=== PATIENT | female | born 1960 | race Caucasian/White ===

== ENCOUNTER → 2018-11-14 | Emergency (ER) | payer MEDICARE ==
[~2018-11-14] VITALS: Ht 162.6 cm; Wt 98.4 kg
[~2018-11-14] MED LIST: AMBIEN PAK10 MG; CARAFATE1 G1; FENTANYL CITRATE/PF 100MCG/2 ML INJ IV NR; HYDROMORPHONE 2MG/ML 2 MG/ML ML IV NR; MOBIC7.5 M1; ONDANSETRON HCL INJ 2MG/ML 2ML 2 MG/ML VIAL IV NR; PRISTIQ50 MG; ULTRAM 50MG50 MG PO; Z.0.CARAFATE1 GM; Z.0.FLOVENT DISKUS50; Z.0.NEXIUM40 MG; Z.0.VENTOLIN HFA18 G; Z.0.VIIBRYD40 MG; [UNRECOGNIZED DRUG - CODE]; [UNRECOGNIZED DRUG - OTHER]
--- OUTSIDE RECORDS SUMMARY | 2018-11-14 18:22 | XMS REPORT | Clinical Summary ---
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 tablet 03/13/2018 traMADol (ULTRAM) 50 mg Take 1-2 tabs 15 tablet 0 tablet q8hr prn pain 8 10/12/2018 metoclopramide (REGLAN) Take 1 tablet 30 tablet 0 10 MG tablet (10 mg total) 9 by mouth 4 (four) times a day as needed (Headache) for up to 14 days. Active Problems Not on file Encounters Care Team Description Date Type Specialty Quang Moser MD Acute nonintractable headache, unspecified headache type (Primary Dx) 09/28/2018 Emergency Emergency Medicine Gagan Hardin DO Contusion of right knee, initial encounter (Primary Dx); Fall, initial encounter; Abrasion 03/07/2018 Emergency Emergency Medicine after 11/13/2017 Immunizations Name Dates Previously Given Next Due Tdap 03/07/2018 Social History Date Tobacco Use Types Packs/Day Years Used Never Smoker Smokeless Tobacco: Never Used Alcohol Use Drinks/Week oz/Week Comments No Alcohol Habits Answer Date Recorded How often do you have a drink containing alcohol? Never 09/28/2018 How many drinks containing alcohol do you have on Not asked a typical day when you are drinking? How often do you have six or more drinks on one Not asked occasion? Sex Assigned at Date Recorded Not on file Industry Job Start Date Occupation Not on file Not on file Not on file Travel End Travel History Travel Start No recent travel history available. Last Filed Vital Signs Time Taken Vital Sign Reading 09/28/2018 11:00 PM [employer]ICE SUPERINTENDENT Blood Pressure 111/65 09/28/2018 11:00 PM [employer]ICE SUPERINTENDENT Pulse 85 09/28/2018 11:00 PM [employer]ICE SUPERINTENDENT Temperature 36.7 C (98.1 F) 09/28/2018 11:00 PM POLICE SUPERINTENDENT Respiratory Rate 17 09/28/2018 11:00 PM POLICE SUPERINTENDENT Oxygen Saturation 96% - Inhaled Oxygen - Concentration 09/28/2018 9:36 PM POLICE SUPERINTENDENT Weight 98.4 kg (217 lb) 09/28/2018 9:36 PM POLICE SUPERINTENDENT Height 162.6 cm (5' 4") 09/28/2018 9:36 PM POLICE SUPERINTENDENT Body Mass Index 37.25 Plan of Treatment Health Maintenance Due Date Last Done Comments CERVICAL CANCER SCREENING 1979 BREAST CANCER SCREENING 2008 COLON CANCER SCREENING 2008 SHINGLES VACCINES (#1) 2008 INFLUENZA VACCINE 04/07/2018 Procedures Comments Procedure Name Priority Date/Time Associated Diagnosis CT HEAD WO CONTRAST STAT 09/28/2018 10:22 PM POLICE SUPERINTENDENT ESTIMATED GFR Routine 09/28/2018 9:54 PM POLICE SUPERINTENDENT COMPREHENSIVE METABOLIC Routine 09/28/2018 PANEL 9:54 PM POLICE SUPERINTENDENT PROTHROMBIN TIME WITH INR Routine 09/28/2018 9:54 PM POLICE SUPERINTENDENT HC COMPLETE BLD COUNT Routine 09/28/2018 W/AUTO DIFF 9:54 PM POLICE SUPERINTENDENT ECG 12-LEAD Routine 09/28/2018 9:52 PM POLICE SUPERINTENDENT ECG ED PRELIMINARY Routine 09/28/2018 INTERPRETATION 9:38 PM POLICE SUPERINTENDENT XR KNEE 4+ VW RIGHT STAT 03/07/2018 7:03 PM CDT XR HIP 2-3 VIEWS RIGHT STAT 03/07/2018 7:03 PM CDT XR ANKLE 3+ VW RIGHT STAT 03/07/2018 7:03 PM CDT after 11/13/2017 Results * CT Head Wo Contrast (09/28/2018 10:22 PM POLICE SUPERINTENDENT) Narrative Performed At EXAM: CT HEAD WO CONTRAST [facility] CLINICAL HISTORY: Headache TECHNIQUE: Noncontrast enhanced images of the brain were obtained from the skull base to the vertex. Both soft tissue and bone reconstruction algorithms were performed. CT scans are performed using radiation dose reduction techniques (iterative reconstruction and/or automated exposure control). Technical factors are evaluated and adjusted to ensure appropriate moderation of exposure. Automated dose management technology is applied to adjust radiation exposure while achieving a diagnostic quality image. COMPARISON:CT, 02/22/2016. FINDINGS: The farley-white matter differentiation is preserved and without evidence of acute territorial infarction. There is no evidence for acute intracranial hemorrhage, mass, mass effect, hydrocephalus, or extra-axial fluid collection. Orbits are unremarkable.Paranasal sinuses are clear.Mastoid air cells are normally pneumatized.Osseous structures are intact. IMPRESSION: No CT evidence for acute intracranial abnormality. [id number] Procedure Note Hm Interface, Radiology Results Incoming - 09/28/2018 10:30 PM POLICE SUPERINTENDENT EXAM: CT HEAD WO CONTRAST CLINICAL HISTORY: Headache TECHNIQUE: Noncontrast enhanced images of the brain were obtained from the skull base to the vertex. Both soft tissue and bone reconstruction algorithms were performed. CT scans are performed using radiation dose reduction techniques (iterative reconstruction and/or automated exposure control). Technical factors are evaluated and adjusted to ensure appropriate moderation of exposure. Automated dose management technology is applied to adjust radiation exposure while achieving a diagnostic quality image. COMPARISON: CT, 02/22/2016. FINDINGS: The farley-white matter differentiation is preserved and without evidence of acute territorial infarction. There is no evidence for acute intracranial hemorrhage, mass, mass effect, hydrocephalus, or extra-axial fluid collection. Orbits are unremarkable. Paranasal sinuses are clear. Mastoid air cells are normally pneumatized. Osseous structures are intact. IMPRESSION: No CT evidence for acute intracranial abnormality. [facility]-[id number] Performing Organization Address City/State/Zipcode Phone Number [facility] [address] [place] [address] * Estimated GFR (09/28/2018 9:54 PM POLICE SUPERINTENDENT) Estimated GFR 54 (A) mL/min/1.73 m2 [employer] Comment: [facility] CatergoryUnitsInte rpretation G1 >=90 Normal or high G2 60-89Mildly decreased [id number] Mildly to moderately decreased [id number] Moderately to severely decreased G4 15-29Severely decreased G5 <15Kidney failure The eGFR was calculated using the Chronic Kidney Disease Epidemiology Collaboration (CKD-EPI) equation. Interpretation is based on recommendations of the National Kidney Foundation-Kidney Disease Outcomes Quality Initiative (NKF-KDOQI) published in 2014. Specimen Plasma specimen Performing Organization Address [facility] Phone Number [address] [place] [address] PATHOLOGY AND GENOMIC MEDICINE [address] * Prothrombin time with INR (09/28/2018 9:54 PM POLICE SUPERINTENDENT) Prothrombin time 12.9 11.5 - 14.5 sec [facility] INR 1.0 [facility] Comment: [facility] The International Normalized Ratio (INR) is a therapeutic monitoring tool for patients who are stable on oral anticoagulant therapy. An INR of 2.0-3.0 is suggested for deep vein thrombosis/pulmonary embolism. Specimen Blood Performing Organization Address [facility] Phone Number [address] [place] [address] PATHOLOGY AND GENOMIC MEDICINE [address] * CBC with platelet and differential (09/28/2018 9:54 PM POLICE SUPERINTENDENT) WBC 9.68 4.50 - 11.00 k/uL [facility] RBC 5.44 4.20 - 5.50 m/uL [facility] HGB 15.4 12.0 - 16.0 g/dL [facility] HCT 45.7 37.0 - 47.0 % [facility] MCV 84.0 82.0 - 100.0 fL [facility] MCH 28.3 27.0 - 34.0 pg [facility] MCHC 33.7 31.0 - 37.0 g/dL [facility] RDW - SD 38.5 37.0 - 55.0 fL [facility] MPV 10.6 8.8 - 13.2 fL [facility] Platelet count 265 150 - 400 k/uL [facility] Nucleated RBC 0.00 /100 WBC [facility] Neutrophils 58.8 39.0 - 69.0 % [facility] Lymphocytes 27.6 25.0 - 45.0 % [facility] Monocytes 9.8 0.0 - 10.0 % [facility] Eosinophils 2.8 0.0 - 5.0 % [facility] Basophils 0.6 0.0 - 1.0 % [facility] Specimen Blood Performing Organization Address City/State/Zipcode Phone Number [facility] [place] [id number] [place] [address] [place] [address] PATHOLOGY AND GENOMIC MEDICINE [address] * Comprehensive metabolic panel (09/28/2018 9:54 PM POLICE SUPERINTENDENT) Sodium 143 135 - 148 mEq/L [facility] Potassium 4.7 3.5 - 5.0 mEq/L [facility] Chloride 108 98 - 112 mEq/L [facility] CO2 20 (L) 24 - 31 mEq/L [facility] Anion gap 15@ANIO 7 - 15 mEq/L [facility] BUN 27 (H) 8 - 23 mg/dL [facility] Creatinine 1.10 (H) 0.50 - 0.90 mg/dL [facility] Glucose 98 65 - 99 mg/dL [facility] Calcium 10.1 8.8 - 10.2 mg/dL [facility] Protein 8.3 6.3 - 8.3 g/dL [facility] Comment: [facility] [place] 4.6-7.0 g/dL 1 week 4.4-7.6 g/dL 7 months-1year 5.1-7.3 g/dL 1-2 years5.6-7 .5 g/dL >3 years6.0-8 .0 g/dL 18-150 6.3-8.3 g/dL Albumin 4.3 3.5 - 5.0 g/dL [facility] A/G ratio 1.1 0.7 - 3.8 [facility] Alkaline phosphatase 69 35 - 104 U/L [facility] AST 24 10 - 35 U/L [facility] ALT 20 5 - 50 U/L [facility] Total bilirubin 0.7 0.0 - 1.2 mg/dL [facility] Specimen Plasma specimen Performing Organization Address [facility] Phone Number [facility] [place] [id number] [place] [address] [place] [address] PATHOLOGY AND GENOMIC MEDICINE [facility] [address] [place] [address] [place] [address] [facility] * ECG 12 lead (09/28/2018 9:52 PM POLICE SUPERINTENDENT) Ventricular rate 79 [facility] Atrial rate 79 [facility] AR interval 138 [facility] QRSD interval 68 [facility] QT interval 346 [facility] QTC interval 396 [facility] P axis 1 27 [facility] QRS axis 1 27 [facility] T wave axis 42 [facility] EKG impression Normal sinus rhythm-Low [facility] voltage QRS-Borderline ECG-In automated comparison with ECG of 22-FEB-2016 20:04,-No significant change was found- Narrative Performed At Performing Organization Address [facility] Phone Number [facility] [address] [place] [address] * ECG ED Preliminary Interpretation - Not an Order (09/28/2018 9:38 PM POLICE SUPERINTENDENT) Narrative Performed At Quang Moser MD 09/29/20183:50 AM ECG ED Preliminary Interpretation - Not an Order Performed by: Quang Moser MD Authorized by: Quang Moser MD ECG reviewed by ED Physician in the absence of a utility system repairer: yes Interpretation: Interpretation: normal Rate: ECG rate:79 ECG rate assessment: normal Rhythm: Rhythm: sinus rhythm Ectopy: Ectopy: none QRS: QRS axis:Normal Conduction: Conduction: normal ST segments: ST segments:Normal T waves: T waves: normal * XR Knee 4+ Vw Right (03/07/2018 7:03 PM CDT) Narrative Performed At EXAMINATION:XR KNEE 4VW RIGHT [facility] CLINICAL HISTORY:fall COMPARISON:None. TECHNIQUE: 4views of the right knee obtained. IMPRESSION: Bones are demineralized. No acute fracture, dislocation or joint effusion identified. [facility]-[id number] Procedure Note Interface, Radiology Results Incoming - 03/07/2018 7:09 PM CDT EXAMINATION: XR KNEE 4 VW RIGHT CLINICAL HISTORY: fall COMPARISON: None. TECHNIQUE: 4 views of the right knee obtained. IMPRESSION: Bones are demineralized. No acute fracture, dislocation or joint effusion identified. [facility]-[id number] Performing Organization Address [facility] Phone Number [facility] [address] [place] [address] * XR Hip 2-3 View Right (03/07/2018 7:03 PM CDT) Narrative Performed At EXAMINATION:XR HIP 2-3 VIEWS RIGHT [facility] CLINICAL HISTORY:fall TECHNIQUE:3views of right hipobtained. COMPARISON:None. IMPRESSION: Left hip arthroplasty. Bones are demineralized. No acute fracture or dislocation identified. Phleboliths in the pelvis. Surgical clips projecting over the pelvis and lower abdomen partially visualized. [facility]-[id number] Procedure Note Interface, Radiology Results Incoming - 03/07/2018 7:10 PM CDT EXAMINATION: XR HIP 2-3 VIEWS RIGHT CLINICAL HISTORY: fall TECHNIQUE: 3 views of right hip obtained. COMPARISON: None. IMPRESSION: Left hip arthroplasty. Bones are demineralized. No acute fracture or dislocation identified. Phleboliths in the pelvis. Surgical clips projecting over the pelvis and lower abdomen partially visualized. [facility]-[id number] Performing Organization Address [facility] Phone Number [facility] [address] [place] [address] * XR Ankle 3+ Vw Right (03/07/2018 7:03 PM CDT) Narrative Performed At EXAMINATION:XR ANKLE 3VW RIGHT [facility] CLINICAL HISTORY:fall COMPARISON:None. TECHNIQUE: 3views of right ankle obtained. IMPRESSION: Ankle mortise intact. No acute fracture or dislocation identified. Os peroneum, anatomic variant. Calcaneal spurring. Mild edema in Kager's fat pad may indicate Achilles peritendinitis. Mild to moderate degenerative change in the talonavicular and naviculocuneiform joints. [facility]-[id number] Procedure Note Interface, Radiology Results Incoming - 03/07/2018 7:08 PM CDT EXAMINATION: XR ANKLE 3 VW RIGHT CLINICAL HISTORY: fall COMPARISON: None. TECHNIQUE: 3 views of right ankle obtained. IMPRESSION: Ankle mortise intact. No acute fracture or dislocation identified. Os peroneum, anatomic variant. Calcaneal spurring. Mild edema in Kager's fat pad may indicate Achilles peritendinitis. Mild to moderate degenerative change in the talonavicular and naviculocuneiform joints. [facility]-[id number] Performing Organization Address City/State/Zipcode Phone Number [facility] [address] [place] [address] after 11/13/2017 Insurance Payer Benefit Subscriber ID Type Phone Address Plan / Group MEDICARE MEDICARE xxxxxxxxxx Medicare [place] B MEDICAID MEDICAID xxxxxxxxx Medicaid ([place]) [place] [address] Advance Directives Patient has advance care planning documents on file. For more information, vladislav roblero contact: Vinnie Kan [address] [place] [address]
--- OUTSIDE RECORDS SUMMARY | 2018-11-14 18:23 | XMS REPORT ---
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 Allergies, Adverse Reactions, Alerts Allergy Name Allergy Type Status Severity Reaction(s) Onset Date Inactive Date Treating Clinician Comments codeine DA Active PA 2018-09-25 00:00:00 codeine DA Active PA 2018-05-17 00:00:00 hydrocodone DA Active U 2018-05-17 00:00:00 pollen extracts DA Active PA 2018-05-17 00:00:00 latex DA Active U 2018-05-17 00:00:00 grass pollen DA Active PA 2018-05-17 00:00:00 codeine DA Active PA 2016-11-19 00:00:00 hydrocodone DA Active U 2016-11-19 00:00:00 pollen extracts DA Active PA 2016-11-19 00:00:00 latex DA Active U 2016-11-19 00:00:00 grass pollen DA Active PA 2016-11-19 00:00:00 Medications This patient has no known medications. Results Test Description Test Time Test Comments Text Results Atomic Results Result Comments URINALYSIS COMPLETE 2018-09-26 01:10:00 UA COLOR (test code=COLU) YELLOW YEL/STRAW UA APPEARANCE (test code=APPU) CLEAR CLEAR UA GLUCOSE DIPSTICK (test code=DGLUU) NEGATIVE NEGATIVE UA BILIRUBIN DIPSTICK (test code=BILU) NEGATIVE NEGATIVE UA KETONE DIPSTICK (test code=KETU) NEGATIVE NEGATIVE UA SPECIFIC GRAVITY (test code=SGU) 1.018 1.005-1.030 UA BLOOD DIPSTICK (test code=MG) 2+ NEGATIVE UA PH DIPSTICK (test code=MONA) 5.0 5.0-7.0 UA PROTEIN DIPSTICK (test code=PROU) NEGATIVE NEGATIVE UA UROBILINIOGEN DIPSTICK (test code=URO) 0.2 mg/dL 0.2-1.0 UA NITRITE DIPSTICK (test code=BRIDGET) NEGATIVE NEGATIVE UA LEUKOCYTE ESTERASE DIPSTICK (test code=LEUU) 1+ NEGATIVE UA WBC (test code=WBCU) 21-50 WBC/HPF 0-3 UA RBC (test code=RBCU) 4-10 RBC/HPF 0-3 UA BACTERIA (test code=BACU) NONE SEEN /HPF NONE SEEN UA SQUAMOUS CELLS (test code=SQU) 6-10 /HPF NONE SEEN UA HYALINE CAST (test code=HYALU) 3-5 /LPF NONE SEEN UA MUCUS (test code=MUCU) TRACE /LPF NONE SEEN URINALYSIS [id number] 01:10:00* Test Item Value Reference Range Comments UA COLOR (test code=COLU) YELLOW YEL/STRAW UA APPEARANCE (test code=APPU) CLEAR CLEAR UA GLUCOSE DIPSTICK (test code=DGLUU) NEGATIVE NEGATIVE UA BILIRUBIN DIPSTICK (test code=BILU) NEGATIVE NEGATIVE UA KETONE DIPSTICK (test code=KETU) NEGATIVE NEGATIVE UA SPECIFIC GRAVITY (test code=SGU) 1.018 1.005-1.030 UA BLOOD DIPSTICK (test code=MG) 2+ NEGATIVE UA PH DIPSTICK (test code=MONA) 5.0 5.0-7.0 UA PROTEIN DIPSTICK (test code=PROU) NEGATIVE NEGATIVE UA UROBILINIOGEN DIPSTICK (test code=URO) 0.2 mg/dL 0.2-1.0 UA NITRITE DIPSTICK (test code=BRIDGET) NEGATIVE NEGATIVE UA LEUKOCYTE ESTERASE DIPSTICK (test code=LEUU) 1+ NEGATIVE UA WBC (test code=WBCU) 21-50 WBC/HPF 0-3 UA RBC (test code=RBCU) 4-10 RBC/HPF 0-3 UA BACTERIA (test code=BACU) NONE SEEN /HPF NONE SEEN UA SQUAMOUS CELLS (test code=SQU) 6-10 /HPF NONE SEEN UA HYALINE CAST (test code=HYALU) 3-5 /LPF NONE SEEN UA MUCUS (test code=MUCU) TRACE /LPF NONE SEEN COMPREHENSIVE METABOLIC [id number] 01:00:00* Test Item Value Reference Range Comments SODIUM (test code=NA) 142 mEq/L 134-147 POTASSIUM (test code=K) 4.2 mEq/L 3.4-5.0 CHLORIDE (test code=CL) 108 mEq/L 100-108 CARBON DIOXIDE (test code=CO2) 25 mEq/L 21-33 ANION GAP (test code=GAP) 13 0-20 GLUCOSE (test code=GLU) 95 mg/dL 70-110 BLOOD UREA NITROGEN (test code=BUN) 24 mg/dL 7-18 GLOMERULAR FILTRATION RATE (test code=GFR) 45.8 80-90 Units of measure=ml/min/1.73 m2 CREATININE (test code=CREAT) 1.2 mg/dL 0.6-1.3 TOTAL PROTEIN (test code=PROT) 7.8 g/dL 6.4-8.2 ALBUMIN (test code=ALB) 3.60 g/dL 3.4-5.0 CALCIUM (test code=CA) 8.8 mg/dL 8.0-10.5 BILIRUBIN TOTAL (test code=BILT) 0.60 mg/dL 0.0-1.0 SGOT/AST (test code=AST) 18 IUnit/L 15-37 SGPT/ALT (test code=ALT) 25 IUnit/L 15-65 ALKALINE PHOSPHATASE TOTAL (test code=ALKP) 82 IUnit/L 20-125 CREATINE KINASE (CK)2018-09-26 01:00:00* Test Item Value Reference Range Comments CREATINE KINASE (CK) (test code=CK) 56 35-232 Result is in INTERNATIONAL UNITS/LITER [id number] 01:00:00* Test Item Value Reference Range Comments MAGNESIUM (test code=MAG) 2.30 mg/dL 1.8-2.4 COMPREHENSIVE METABOLIC [id number] 00:58:00* Test Item Value Reference Range Comments SODIUM (test code=NA) 142 mEq/L 134-147 POTASSIUM (test code=K) 4.2 mEq/L 3.4-5.0 CHLORIDE (test code=CL) 108 mEq/L 100-108 CARBON DIOXIDE (test code=CO2) 25 mEq/L 21-33 ANION GAP (test code=GAP) 13 0-20 GLUCOSE (test code=GLU) 95 mg/dL 70-110 BLOOD UREA NITROGEN (test code=BUN) 24 mg/dL 7-18 GLOMERULAR FILTRATION RATE (test code=GFR) 45.8 80-90 Units of measure=ml/min/1.73 m2 CREATININE (test code=CREAT) 1.2 mg/dL 0.6-1.3 TOTAL PROTEIN (test code=PROT) g/dL 6.4-8.2 ALBUMIN (test code=ALB) 3.60 g/dL 3.4-5.0 CALCIUM (test code=CA) 8.8 mg/dL 8.0-10.5 BILIRUBIN TOTAL (test code=BILT) mg/dL 0.0-1.0 SGOT/AST (test code=AST) 18 IUnit/L 15-37 SGPT/ALT (test code=ALT) 25 IUnit/L 15-65 ALKALINE PHOSPHATASE TOTAL (test code=ALKP) IUnit/L 20-125 CREATINE KINASE (CK)2018-09-26 00:58:00* Test Item Value Reference Range Comments CREATINE KINASE (CK) (test code=CK) 35-232 [id number] 00:58:00* Test Item Value Reference Range Comments MAGNESIUM (test code=MAG) 2.30 mg/dL 1.8-2.4 CBC W/AUTO [id number] 00:53:00* Test Item Value Reference Range Comments WHITE BLOOD CELL (test code=WBC) 6.61 x10 3/uL 4.5-11.0 RED BLOOD CELL (test code=RBC) 5.22 x10 6/uL 3.54-5.02 HEMOGLOBIN (test code=HGB) 14.8 g/dL 11.0-15.0 HEMATOCRIT (test code=HCT) 45.4 % 33.0-45.0 MEAN CELL VOLUME (test code=MCV) 87.0 fL 81.0-99.0 MEAN CELL HGB (test code=MCH) 28.4 pg 27.0-33.0 MEAN CELL HGB CONCETRATION (test code=MCHC) 32.6 g/dL 33.0-37.0 RED CELL DISTRIBUTION WIDTH CV (test code=RDW) 12.6 % 11.5-14.5 RED CELL DISTRIBUTION WIDTH SD (test code=RDW-SD) 39.8 fL 37.0-54.0 PLATELET COUNT (test code=PLT) 209 x10 3/uL 150-400 MEAN PLATELET VOLUME (test code=MPV) 10.9 fL 7.0-9.0 NEUTROPHIL % (test code=NT%) 51.1 % 56.0-77.0 IMMATURE GRANULOCYTE % (test code=IG%) 0.5 % 0.0-2.0 LYMPHOCYTE % (test code=LY%) 30.7 % 14.0-32.0 MONOCYTE % (test code=MO%) 12.0 % 4.8-9.0 EOSINOPHIL % (test code=EO%) 5.1 % 0.3-3.7 BASOPHIL % (test code=BA%) 0.6 % 0.0-2.0 NUCLEATED RBC % (test code=NRBC%) 0.0 % 0-0 NEUTROPHIL # (test code=NT#) 3.38 x10 3/uL 2.0-7.6 IMMATURE GRANULOCYTE # (test code=IG#) 0.03 x10 3/uL 0.00-0.03 LYMPHOCYTE # (test code=LY#) 2.03 x10 3/uL 1.0-3.8 MONOCYTE # (test code=MO#) 0.79 x10 3/uL 0.1-0.8 EOSINOPHIL # (test code=EO#) 0.34 x10 3/uL 0.0-0.2 BASOPHIL # (test code=BA#) 0.04 x10 3/uL 0.0-0.2 NUCLEATED RBC # (test code=NRBC#) 0.00 x10 3/uL 0.0-0.1 MANUAL DIFF REQUIRED (test code=MDIFF) NO
--- NOTE | 2018-11-14 20:23 | Diagnostic Imaging Report ---
EXAMINATION: RIBS UNILAT W/CXR INDICATION: Right lateral rib pain s/p fall. Focal tenderness with palp COMPARISON: 02/25/2012 FINDINGS: AP view TUBES and LINES: None. LUNGS: Lungs are well inflated. Lungs are clear. There is no evidence of pneumonia or pulmonary edema. PLEURA: No pleural effusion or pneumothorax. HEART AND MEDIASTINUM: The cardiomediastinal silhouette is unremarkable. BONES AND SOFT TISSUES: No acute osseous lesion. No acute displaced rib fractures. Stable widening of the right AC joint. Soft tissues are unremarkable. UPPER ABDOMEN: No free air under the diaphragm. IMPRESSION: No acute thoracic abnormality. Signed by: DR. Sumit Lombardo MD on 11/14/2018 8:20 PM
== END | disposition home or self-care (01) ==
LOC: ER 18:18
DX: S20.211A Contusion of right front wall of thorax, initial encounter (principal); W01.0XXA Fall on same level from slipping, tripping and stumbling without subsequent striking against object, initial encounter; Y93.73 Activity, racquet and hand sports; Y92.318 Other athletic court as the place of occurrence of the external cause
CPT/HCPCS: 71101; 99284; J1170; J2405

== ENCOUNTER 2021-03-19 11:22 | Emergency (ER) | payer MEDICARE ==
[~2021-03-19] VITALS: Ht 162.6 cm; Wt 98.4 kg
[~2021-03-19 11:22] MED LIST changes: -FENTANYL CITRATE/PF 100MCG/2 ML INJ IV NR; -HYDROMORPHONE 2MG/ML 2 MG/ML ML IV NR; -ONDANSETRON HCL INJ 2MG/ML 2ML 2 MG/ML VIAL IV NR
[2021-03-19] MEDS ORDERED: KETOROLAC TROMETHAMINE 60 MG/2 ML VIAL IM NR (11:30)
[2021-03-19] MEDS ORDERED: KETOROLAC TROMETHAMINE 60 MG/2 ML VIAL ONE (14:38)
[2021-03-19] MEDS ORDERED: VALIUM5 MG PO (15:21)
[2021-03-19 15:37] VITALS: BP 130/51
== END 2021-03-19 15:38 | disposition home or self-care (01) ==
LOC: ER 12:10
DX: S39.012D Strain of muscle, fascia and tendon of lower back, subsequent encounter (principal); W18.30XD Fall on same level, unspecified, subsequent encounter; J45.909 Unspecified asthma, uncomplicated; M79.7 Fibromyalgia; F32.9 Major depressive disorder, single episode, unspecified
CPT/HCPCS: 74176; 99283; J1885